=== PATIENT | male | born 1975 | race Caucasian/White ===

== ENCOUNTER 2019-10-14 07:53 | Emergency (ER) | payer OTHER ==
[~2019-10-14] VITALS: Ht 177.8 cm; Wt 113.4 kg
[~2019-10-14 07:53] MED LIST: FLEXERIL PO; HYDROCODONE-AP1 EAC6 PO; IBUPROFEN 800800 M1 PO
[2019-10-14 08:13] LABS: URINE BLOOD TRACE (Negative); URINE CLARITY CLEAR; URINE COLOR YELLOW; URINE GLUCOSE-RANDOM NEGATIVE (Negative); URINE KETONES 2+ (Negative); URINE LEUKOCYTES-REFLEX NEGATIVE (Negative); URINE NITRITE-REFLEX NEGATIVE (Negative); URINE PROTEIN 2+ (Negative); URINE SPECIFIC GRAVITY >= 1.030 (1.005-1.030)
[2019-10-14 08:16] LABS: ICTOTEST (BILI CONFIRMATORY) Negative (Negative); URINE BILIRUBIN 2+ (Negative)
[2019-10-14 08:39] LABS: CALCIUM 9.4 mg/dL (8.5-10.1); CREATININE 0.9 mg/dL (0.6-1.3); POTASSIUM 3.9 mmol/L (3.5-5.1)
[2019-10-14 08:44] LABS: HYALINE CASTS 0-3 Few /LPF (None Seen); MUCUS >6 Heavy strn/LPF (None Seen); SQUAMOUS 0-3 Few /LPF (0-3)
[2019-10-14 08:45] LABS: AMORPHOUS URATES Few /LPF (None Seen); BACTERIA-REFLEX None Seen /HPF (None Seen); URINE RBC 0-2 Rare /HPF (0-2); URINE WBC-REFLEX 0-5 Rare /HPF (0-5)
[2019-10-14] MEDS ORDERED: FLEXERIL PO (10:10)
[2019-10-14] MEDS ORDERED: NORCO 5-325 TA1 EAC1 PO (10:10)
[2019-10-14] MEDS ORDERED: IBUPROFEN 800800 M1 PO (10:10)
[2019-10-14 10:32] VITALS: BP 135/72
== END 2019-10-14 10:33 | disposition home or self-care (01) ==
LOC: M.ERS 07:53
PROVIDERS: Emergency Medicine Emergency Medical Services
DX: R10.84 Generalized abdominal pain (principal); M54.9 Dorsalgia, unspecified; Z87.442 Personal history of urinary calculi

== ENCOUNTER 2021-12-16 17:40 | Inpatient (IN) | payer OTHER ==
[~2021-12-16] VITALS: Ht 177.8 cm; Wt 104.3 kg
[~2021-12-16 17:40] MED LIST changes: +NORCO 5-325 TA1 EAC1 PO
[2021-12-16 17:44] VITALS: BP 163/97
[2021-12-16 18:17] LABS: URINE BLOOD 3+ (Negative); URINE CLARITY SL CLOUDY; URINE COLOR DARK YELLOW; URINE GLUCOSE-RANDOM TRACE (Negative); URINE LEUKOCYTES-REFLEX TRACE (Negative); URINE PROTEIN 3+ (Negative); URINE SPECIFIC GRAVITY 1.025 (1.005-1.030)
[2021-12-16 18:20] LABS: ICTOTEST (BILI CONFIRMATORY) Positive (Negative); URINE BILIRUBIN 2+ (Negative); URINE KETONES 3+ (Negative); URINE NITRITE-REFLEX POSITIVE (Negative)
[2021-12-16 18:25] LABS: ABSOLUTE BASOPHILS 0.1 thou/uL (0.0-0.2); ABSOLUTE LYMPHOCYTES 0.6 thou/uL (0.8-5.3); ABSOLUTE MONOCYTES 0.8 thou/uL (0.0-1.2); ABSOLUTE NEUTROPHILS 5.5 thou/uL (1.6-8.1); BASOPHILS 0.8 %; EOSINOPHILS 0.1 %; HEMATOCRIT 45.2 % (42.0-52.0); LYMPHOCYTES 8.1 %; MCH 36.3 pg (26.0-34.0); MCHC 35.4 g/dL (28.0-37.0); MCV 102.6 fL (80.0-100.0); MPV 8.2 fl. (7.2-11.1); NUCLEATED RBCS 0 /100WBC; PLATELET COUNT* 167 thou/uL (150-400); RBC 4.41 mil/uL (4.50-6.00); RDW-CV 14.1 % (10.5-14.5); WBC 6.9 thou/uL (4.0-11.0)
[2021-12-16 18:28] LABS: MUCUS >6 Heavy strn/LPF (None Seen)
[2021-12-16 18:29] LABS: SQUAMOUS 4-10 Moderate /LPF (0-3); URINE RBC >20 Many /HPF (0-2)
[2021-12-16 18:30] LABS: BACTERIA-REFLEX 1-9 Few /HPF (None Seen); CRYSTALS None Seen /LPF (None Seen); HYALINE CASTS 0-3 Few /LPF (None Seen); URINE WBC-REFLEX 0-5 Rare /HPF (0-5)
[2021-12-16 18:36] LABS: AMP/METHAMP Negative (Negative); BARBITURATES Negative (Negative); BENZODIAZEPINES Negative (Negative); COCAINE Negative (Negative); METHADONE Negative (Negative); OPIATES Negative (Negative); PCP Negative (Negative); THC POSITIVE (Negative)
[2021-12-16 18:36] LABS: CALCIUM 9.7 mg/dL (8.5-10.1); CREATININE 0.8 mg/dL (0.6-1.3)
[2021-12-16 18:39] LABS: ALBUMIN 4.4 g/dL (3.4-5.0); TOTAL BILIRUBIN 2.1 mg/dL (<0.1-1.0); TOTAL PROTEIN 7.7 g/dL (6.4-8.2)
[2021-12-16 20:00] VITALS: BP 181/90
[2021-12-16 20:55] LABS: MAGNESIUM 1.5 mg/dL (1.8-2.4)
[2021-12-16 21:04] LABS: APTT 25.2 Seconds (25.0-31.3); INR 1.1; PROTIME 11.2 Seconds (9.20-11.50)
--- NOTE | 2021-12-16 21:45 | NUR ---
REPORT TO DANNIE GUTIERRES.
[2021-12-16 22:01] VITALS: BP 183/109
[2021-12-16 22:13] VITALS: BP 155/91
[2021-12-16 23:00] VITALS: BP 150/91
[2021-12-17] VITALS (19 sets, daily range): BP systolic 135–167; BP diastolic 76–109
[2021-12-17 01:20] LABS: HEMATOCRIT 42.7 % (42.0-52.0); HEMOGLOBIN 14.7 gm/dL (14.0-18.0); MCH 35.7 pg (26.0-34.0); MCHC 34.3 g/dL (28.0-37.0); RBC 4.1 mil/uL (4.50-6.00); WBC 5.9 thou/uL (4.0-11.0)
[2021-12-17 01:28] LABS: CREATININE 0.8 mg/dL (0.6-1.3); POTASSIUM 3.1 mmol/L (3.5-5.1)
[2021-12-17 01:33] LABS: ALBUMIN 3.7 g/dL (3.4-5.0); MAGNESIUM 1.6 mg/dL (1.8-2.4); TOTAL BILIRUBIN 2.1 mg/dL (<0.1-1.0); TOTAL PROTEIN 6.3 g/dL (6.4-8.2)
--- NOTE | 2021-12-17 10:09 | NUR ---
Pt is admitted to the hospital for ETOH withdrawl on 12/16/21. Called - Jennifer at: to complete assessment as pt is currently in the ICU. Pt lives with his /child in a house. 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 Pt was previously independent in ADL's and Mobility. No hx of HH/DME/SNF. Pt fills his prescriptions at the [facility] on [address] Pt saw his PCP at the end of October,. reports pt is a daily drinker. reports spouse told them when he met 3 years ago he had stopped but feels he has had issues with ETOH for quite sometime and everytime she asked him if he had a problem would get very defensive and deny having a problem. reports pt's mother is a social sciences department chair and he calls her often for support but he hasn't ever sought treatment for ETOH abuse. Discussed with we will encourage him to seek treatment and provided resources. CM to continue to follow for discharge planning.
--- NOTE | 2021-12-17 12:54 | EKG ---
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 : 1975 Requested By: Natty Álvarez Order Number: [id number] MD: Antonio Lemons Measurements Intervals [place] Rate: 94 P: 70 MT: 145 QRS: 39 QRSD: 88 T: 43 QT: 388 QTc: 486 Interpretive Statements Sinus rhythm Borderline prolonged QT interval No previous ECG available for comparison Electronically Signed On 12-17-2021 12:54:44 [employer]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
[2021-12-17 22:45] LABS: CALCIUM 8.3 mg/dL (8.5-10.1); CREATININE 0.8 mg/dL (0.6-1.3); POTASSIUM 3.2 mmol/L (3.5-5.1)
[2021-12-18] VITALS: BP 157/98
--- NOTE | 2021-12-18 03:13 | NUR ---
ASSUMED CARE AT APPROX 2137. PATIENT ARRIVED VIA WHEELCHAIR FROM ICU AFTER PHONE REPORT. VITAL SIGNS STABLE. PATIENT PLEASANT AND COOPERATIVE. POTASSIUM REDRAW STILL LOW AT 3.2. REPLACEMENT AGAIN IN PROGRESS. SR ON MONITOR. MEDS PER ORDER. PATIENT ON WEANING DOSES OF ATIVAN AND TOLERATING WELL. FALL PRECAUTIONS IN PLACE. CONTINUE TO MONITOR.
[2021-12-18 04:00] VITALS: BP 145/97
[2021-12-18 05:31] LABS: HEMATOCRIT 43.3 % (42.0-52.0); HEMOGLOBIN 15.2 gm/dL (14.0-18.0); MCH 36.3 pg (26.0-34.0); MCHC 35.2 g/dL (28.0-37.0); MPV 8.4 fl. (7.2-11.1); RBC 4.2 mil/uL (4.50-6.00); RDW-CV 13.7 % (10.5-14.5); WBC 5.3 thou/uL (4.0-11.0)
--- NOTE | 2021-12-18 05:37 | NUR ---
PATIENT UNABLE TO TOLERATE IV POTASSIUM AFTER 2 AND 1/2 BAGS OF 4. FINAL DOSE PROVIDED ORALLY.
[2021-12-18 06:11] LABS: ALBUMIN 3.8 g/dL (3.4-5.0); CALCIUM 8.3 mg/dL (8.5-10.1); CREATININE 0.6 mg/dL (0.6-1.3); MAGNESIUM 1.9 mg/dL (1.8-2.4); POTASSIUM 3.5 mmol/L (3.5-5.1); TOTAL BILIRUBIN 2.2 mg/dL (<0.1-1.0); TOTAL PROTEIN 6.8 g/dL (6.4-8.2)
[2021-12-18 07:12] LABS: GLYCOHEMOGLOBIN (HGB A1C) 6.3 % (4.8-5.6)
[2021-12-18 08:00] VITALS: BP 167/105
[2021-12-18 19:27] VITALS: BP 165/98
[2021-12-18 20:00] VITALS: BP 131/99
[2021-12-19 00:57] VITALS: BP 138/97
[2021-12-19 02:06] LABS: HEPATITIS B SURFACE AG Negative (Negative)
[2021-12-19 04:36] LABS: HEMATOCRIT 44.5 % (42.0-52.0); HEMOGLOBIN 15.6 gm/dL (14.0-18.0); MCH 35.7 pg (26.0-34.0); MCHC 35.1 g/dL (28.0-37.0); MCV 101.9 fL (80.0-100.0); RBC 4.37 mil/uL (4.50-6.00); RDW-CV 13.7 % (10.5-14.5); WBC 5.5 thou/uL (4.0-11.0)
[2021-12-19 04:58] LABS: ALBUMIN 3.8 g/dL (3.4-5.0); CALCIUM 8.7 mg/dL (8.5-10.1); CREATININE 0.7 mg/dL (0.6-1.3); POTASSIUM 3.2 mmol/L (3.5-5.1); TOTAL BILIRUBIN 2.5 mg/dL (<0.1-1.0)
[2021-12-19 06:00] VITALS: BP 136/84
[2021-12-19 08:00] VITALS: BP 159/108
[2021-12-19 12:00] VITALS: BP 153/99
[2021-12-19 16:00] VITALS: BP 165/96
[2021-12-19 20:00] VITALS: BP 143/95
[2021-12-20 01:29] VITALS: BP 158/92
[2021-12-20 04:01] LABS: HEMOGLOBIN 15.1 gm/dL (14.0-18.0); MCH 35.4 pg (26.0-34.0); MCHC 34.3 g/dL (28.0-37.0); MCV 103.2 fL (80.0-100.0); MPV 8.2 fl. (7.2-11.1); RBC 4.27 mil/uL (4.50-6.00); RDW-CV 13.8 % (10.5-14.5); WBC 8.1 thou/uL (4.0-11.0)
[2021-12-20 04:25] LABS: ALBUMIN 3.8 g/dL (3.4-5.0); CALCIUM 9.2 mg/dL (8.5-10.1); CREATININE 0.7 mg/dL (0.6-1.3); POTASSIUM 3.9 mmol/L (3.5-5.1); TOTAL BILIRUBIN 2.1 mg/dL (<0.1-1.0); TOTAL PROTEIN 6.9 g/dL (6.4-8.2)
[2021-12-20 06:07] VITALS: BP 147/96
[2021-12-20] MEDS ORDERED: LACTULOSE20 GM/30 M PO (07:16)
[2021-12-20] MEDS ORDERED: METFORMIN HCL500 MG PO (07:16)
[2021-12-20] MEDS ORDERED: PRENATAL PO (07:16)
[2021-12-20] MEDS ORDERED: BACTRIM DS TAB1 EAC1 PO (07:16)
[2021-12-20] MEDS ORDERED: TOPROL XL25 MG PO (07:16)
[2021-12-20] MEDS ORDERED: XANAX 0.25 MG0.25 MG PO (07:16)
[2021-12-20 09:23] VITALS: BP 159/107
[2021-12-20 12:00] VITALS: BP 164/101
[2021-12-20 12:42] VITALS: BP 164/101
--- NOTE | 2021-12-23 16:05 | CON ---
[address] [address] CONSULTATION Name: PETRAHollisAMANDA Adiel Room: [address] IN M.R.#: [id number] Admission: 12/16/21 Attend Phys: Veronica Thakur MD Discharge: 12/20/21 Date of : 77 Report #: [id number] THIS REPORT FOR: cc: Bill Kothari,Franklyn Rivas MD ~ cc: Bill Kothari DATE OF CONSULTATION: 12/17/2021 Please note at the time of this dictation, the patient was seen and physically examined by myself. REASON FOR CONSULTATION: Intractable nausea, vomiting and diarrhea. HISTORY OF PRESENT ILLNESS: This is a 46-year-old male presenting here today with tremors, intractable nausea, vomiting and diarrhea for the past 24 hours. The patient states he usually drinks several beers and a fifth of hard liquor daily. His last drink of alcohol was on Tuesday evening in which he had a couple of margaritas with a fifth of hard liquor. The patient has been drinking daily like this for the last 6 years and he knows that he needs to stop to be around for his 3-year-old son. It was also noted on admission that he had a UTI and he also was positive for marijuana use. In talking with the patient he has never seen GI before, but he does take ibuprofen 800 mg daily and has for a very long period of time. Currently, his vomiting has stopped. He has not noticed any bright red or coffee-ground emesis; however, he has noted hematochezia of both bright red blood and black stools. The patient states normally his bowels move 3-4 times a day and that his normal preference and he just recently started noticing the change with the black stools and some bright red blood, both in his stool. ALLERGIES: No known drug allergies. MEDICATIONS FROM HOME: None. MEDICAL HISTORY: Back problems and history of kidney stones. PAST SURGICAL HISTORY: None. FAMILY HISTORY: Mother, breast cancer. SOCIAL HISTORY: Smokes marijuana regularly. Former cigarette smoker, but does drink alcohol daily several beers or mixed drinks along with a fifth of hard liquor daily for [place] [address] CONSULTATION Name: MAANDA MORTON Room: [address]#: [id number] Admission: 12/16/21 Attend Phys: Veronica Thakur MD Discharge: 12/20/21 Date of : 77 Report #: [id number] REVIEW OF SYSTEMS: Twelve-point review of systems is essentially negative except what is mentioned in the HPI. PHYSICAL EXAMINATION: VITAL SIGNS: Temperature 36.7, pulse 90, respirations 17, blood pressure 164/102. HEART: Regular rate and rhythm. LUNGS: Diminished, but clear. ABDOMEN: Soft, positive bowel sounds in all 4 quadrants with some tenderness noted in the epigastric and lower abdominal area. LABORATORY DATA: Hemoglobin on admission was 16, it is 14.7; white count is 5.9; platelets are 143. PT is 11.2, INR is 1.1. GFR is 105. BUN is 11, creatinine 0.8, total bilirubin is 2.1, alkaline phosphatase 88, ALT 119, AST is 129. His ammonia level was 36. UTI noted and positive for marijuana. CT scan showed hepatic steatosis and a small 7 mm calculus in the proximal left ureter. IMPRESSION: 1. Nausea and vomiting, slightly improved. 2. Abdominal pain, epigastric and lower. 3. Hematochezia, both bright red blood and melanotic. 4. Thrombocytopenia. 5. Hepatic steatosis. 6. Alcoholic hepatitis. 7. Alcoholic withdrawal. 8. NSAID use daily for many years. 8. Kidney stone. 9.. Urinary tract infection. 9. Family history of mother with breast cancer. PLAN: 1. IV Protonix b.i.d. 2. Once the patient has gone through withdrawal, he will need an EGD, colonoscopy unless we notice an increase in bleeding and a drop in the hemoglobin. 3. We will await urology evaluation. 4. Further recommendations to be made after the above has been noted and Dr. Caballero sees the patient later today. Thank you for allowing us to participate in this patient's care[place] [address] CONSULTATION Name: PETRAHollisLIZABETHAdiel Chun Room: [address] [place] M.R.#: [id number] Admission: 12/16/21 Attend Phys: Veronica Thakur MD Discharge: 12/20/21 Date of : 77 Report #: [id number] hesitate to call with any questions in regard to this consult. Please note that 35 minutes was spent with the patient at the bedside and in reviewing his chart. <ELECTRONICALLY SIGNED> By: Franklyn Caballero MD 12/23/21 1605 [id number] Caballero MD /nt
== END 2021-12-20 18:23 | disposition home or self-care (01) | DRG 897 ==
LOC: M.ERS 17:40 → M.TBA-ER 19:37 → M.ICU 19:37 → M.2W 12-17 21:41
PROVIDERS: Personal Emergency Response Attendant; Student in an Organized Health Care Education/Training Program; ADMIT Internal Medicine; ATTEND Internal Medicine
DX: F10.239 Alcohol dependence with withdrawal, unspecified (principal); N20.1 Calculus of ureter; K92.1 Melena; N13.6 Pyonephrosis; E11.65 Type 2 diabetes mellitus with hyperglycemia; Z79.4 Long term (current) use of insulin; Z20.822 Contact with and (suspected) exposure to COVID-19; K70.10 Alcoholic hepatitis without ascites; D69.6 Thrombocytopenia, unspecified